=== PATIENT | female | born 1940 | race Caucasian/White ===

== ENCOUNTER 2017-12-19 06:45 | Day surgery (SDC) | payer MEDICARE ==
[~2017-12-19] VITALS: Ht 165.1 cm; Wt 87.3 kg
[~2017-12-19 06:45] MED LIST: BENA1TAB18 PO; CHOL100018 PO; CHOL200016 PO; METF500T6 PO; MULT1TAB70 PO; PRAV20TA4 PO; SITA100T12 PO; SODIUM CHLORIDE 0.9% 1000ML 1,000 ML IV ONE; [UNRECOGNIZED DRUG - OTHER] PO; equate allergy PO
[2017-12-19 07:07] VITALS: BP 142/74
[2017-12-19] MEDS ORDERED: PROPOFOL 10 MG/ML 20ML VIAL IV ONE ×2 (08:28→09:02)
== END 2017-12-19 09:45 ==
LOC: DAH 06:45 → ENDO 06:45
PROVIDERS: ATTEND Internal Medicine Gastroenterology
DX: K52.9 Noninfective gastroenteritis and colitis, unspecified (principal); K21.0 Gastro-esophageal reflux disease with esophagitis; K56.2 Volvulus; I10 Essential (primary) hypertension; E78.5 Hyperlipidemia, unspecified; J45.909 Unspecified asthma, uncomplicated; Z85.3 Personal history of malignant neoplasm of breast; Z80.0 Family history of malignant neoplasm of digestive organs; E11.9 Type 2 diabetes mellitus without complications; Z90.49 Acquired absence of other specified parts of digestive tract; Z79.899 Other long term (current) drug therapy; Z79.84 Long term (current) use of oral hypoglycemic drugs; Z90.710 Acquired absence of both cervix and uterus; Z98.890 Other specified postprocedural states; Z68.38 Body mass index [BMI] 38.0-38.9, adult; Z88.0 Allergy status to penicillin
CPT/HCPCS: 43248; 45380; 82948; 88305; 93005; A4606; J2704 ×2; J7030